=== PATIENT | male | born 1955 | race Caucasian/White ===

== ENCOUNTER 2018-04-18 14:18 | Emergency (ER) | payer BC ==
[2018-04-18] MEDS ORDERED: ACETAMINOPHEN 325 MG TABLET PO ONE (15:19)
--- NOTE | 2018-04-18 15:19 | ER Document Report ---
ED Medical Screen (RME) - General Mode of Arrival: Ambulatory Information source: Patient <DERREK CORONA - Last Filed: 04/18/18 20:03> <GERMANIA REYNA - Last Filed: 04/18/18 20:44> - General Chief Complaint: Fall Injury Stated Complaint: FALL,BODY PAIN Time Seen by Provider: 04/18/18 14:56 Notes: Patient is a 63-year-old male that presents to the emergency department for chief complaint of finger laceration, and fall from 10 feet. Patient states that he was working on building stairs, and he fell approximately 10 feet forward, he did hit his head, but did not lose consciousness, he ended up cutting his left pinky finger, and has pain in his low back from bruising it. Currently rates his pain as a 5 out of 10 mainly in the back, where he had some bruising, describes as an aching, dull sensation, nonradiating denies any numbness, tingling or weakness in the arms or legs. He believes his last tetanus was 6 years ago. ROS: Unless otherwise stated in this report the patient's positive and negative responses for review of systems for constitutional, eyes, ENT, cardiovascular, respiratory, gastrointestinal, neurological, genitourinary, musculoskeletal, and integumentary systems and related systems to the presenting problem are either as stated in the HPI or were not pertinent or were negative for the symptoms and/or complaints related to the presenting medical problem. PHYSICAL EXAMINATION: Vital signs reviewed. GENERAL: Well-appearing, well-nourished and in no acute distress. HEAD: Cephalhematoma noted to the left posterior lateral scalp, no active bleeding, no lacerations, there is an abrasion over the patient's right bridge of his nose as well. EYES: Pupils equal round extraocular movements intact, conjunctiva are normal. ENT: Nares patent, no septal hematoma NECK: Normal range of motion CV: Heart regular rate and rhythm LUNGS: No respiratory distress BACK: Mild tenderness to palpation, over the area of the left quadratus lumborum muscle, there is no paraspinal or midline tenderness to the lumbar thoracic spine. Musculoskeletal: Normal range of motion, laceration noted to the palmar aspect of the left small finger, into the subcutaneous tissues, no active bleeding at this time, cap refill less than 3 seconds NEUROLOGICAL: Normal speech, no numbness, tingling or weakness in any extremity PSYCH: Normal mood, normal affect. MDM: Patient seen and examined for rapid initial assessment. Vital signs reviewed. A comprehensive ED assessment and evaluation of the patient, analysis of test results and completion of the medical decision making process will be conducted by additional ED providers. *Note is created using voice recognition software and may contain spelling, syntax or grammatical errors. (GERMANIA REYNA) - Related Data Allergies/Adverse Reactions: No Known Allergies Allergy (Verified 04/18/18 14:54) Past Medical History - Social History Frequency of alcohol use: Social Drug Abuse: Marijuana - Past Medical History Cardiac Medical History: Reports: Hx Hypertension Pulmonary Medical History: Reports: Hx Asthma Renal/ Medical History: Denies: Hx Peritoneal Dialysis Past Surgical History: Reports: Hx Orthopedic Surgery - knee, rotator cuff <GERMANIA REYNA - Last Filed: 04/18/18 20:44> - Vital signs Vitals: Temp Pulse Resp BP Pulse Ox 97.8 F 62 18 142/64 H 96 04/18/18 14:23 04/18/18 14:23 04/18/18 14:23 04/18/18 14:23 04/18/18 14:23 - Vital Signs Vital signs: Temp Pulse Resp BP Pulse Ox 97.8 F 57 L 17 136/81 H 96 04/18/18 20:26 04/18/18 20:26 04/18/18 20:26 04/18/18 20:26 04/18/18 20:26 Procedures - Immobilization Left 5th digit Pre-Proc Neuro Vasc Exam: Normal Immobilizer type: Finger splint (Static) Performed by: PCT Post-Proc Neuro Vasc Exam: Normal, Unchanged from pre-exam Alignment checked and good: Yes - Laceration/Wound Repair Left 5th digit Time completed: 19:52 Wound length (cm): 2.7 Wound's Depth, Shape: Into muscle, Linear, Irregular Laceration pre-procedure: Sterile PPE donned, Sterile drapes applied, Shur- Clens applied Anesthetic type: 1% Lidocaine Volume Anesthetic (mLs): 4 Wound explored: No foreign body removed, Contaminated Irrigated w/ Saline (mLs): 200 Wound Debrided: Moderate Wound Repaired With: Sutures Suture Size/Type: 4:0 Number of Sutures: 5 Layer Closure?: No Post-procedure wound care: Sterile dressing applied, Splint applied Post-procedure NV exam normal: Yes Complications: No <CJDERREK T - Last Filed: 04/18/18 20:03> Doctor's Discharge <DERREK CORONA - Last Filed: 04/18/18 20:03> <REYNAGERMANIA - Last Filed: 04/18/18 20:44> - Discharge Clinical Impression: Concussion Qualifiers: Encounter type: initial encounter Loss of consciousness presence/duration: without LOC Qualified Code(s): S06.0X0A - Concussion without loss of consciousness, initial encounter Finger laceration Qualifiers: Encounter type: initial encounter Finger: little finger Damage to nail status: without damage Foreign body presence: without foreign body Laterality: left Qualified Code(s): S61.217A - Laceration without foreign body of left little finger without damage to nail, initial encounter Condition: Stable Disposition: HOME, SELF-CARE Instructions: Antibiotic Ointment Protection ([facility]), Laceration Care ([facility]), Oral Narcotic Medication ([facility]) Additional Instructions: Home and rest. Take all the antibiotics that we have prescribed. Return to ER in 8-10 days for suture removal or sooner if you have any concerns or problems. Primarily be on the safe side if it does not look like it is healing to you come back and let us look at it. As far as all your other aches and pains ago ice down everything that hurts at least 3 times a day. Ibuprofen 800 mg 3 times a day with food. Again should you have any concerns or problems return to ER for recheck. Use the splint for at least 4-5 days in order to let it heal. You may take it off to take a shower. Keep the wound clean and dry for 48 hours. After that you can resume normal activity. Prescriptions: Cephalexin Monohydrate [Keflex 500 mg Capsule] 500 mg PO Q6H 7 Days #28 capsule Hydrocodone/Acetaminophen [Decorah 5-325 mg Tablet] 1 tab PO Q4 PRN #10 tablet PRN Reason: Forms: Elevated Blood Pressure Referrals: ISELA GUZMAN MD [Primary Care Provider] - Follow up as needed
--- NOTE | 2018-04-18 15:52 | RADIOLOGY REPORT (SQ) ---
EXAM DESCRIPTION: CT HEAD WITHOUT COMPLETED DATE/TIME: 04/18/2018 3:44 pm REASON FOR STUDY: fall, head injury COMPARISON: None. TECHNIQUE: Axial images acquired through the brain without intravenous contrast. Images reviewed wi th bone, brain and subdural windows. Additional sagittal and coronal reconstructions were generated. Images stored on PACS. All CT scanners at this facility use dose modulation, iterative reconstruction, and/or weight based d osing when appropriate to reduce radiation dose to as low as reasonably achievable (ALARA). [facility]: Dose Right [facility]: CareDose [facility]: Dose Right [facility]: Teradose 4D [facility]: CampEasy RADIATION DOSE: CT Rad equipment meets quality standard of care and radiation dose reduction techniq ues were employed. CTDIvol: 53.2 mGy. DLP: 1097 mGy-cm. mGy. LIMITATIONS: None. FINDINGS: VENTRICLES: Normal size and contour. CEREBRUM: No masses. No hemorrhage. No midline shift. No evidence for acute infarction. Normal gra y/white matter differentiation. No areas of low density in the white matter. CEREBELLUM: No masses. No hemorrhage. No alteration of density. No evidence for acute infarction. EXTRAAXIAL SPACES: No fluid collections. No masses. ORBITS AND GLOBE: No intra- or extraconal masses. Normal contour of globe without masses. CALVARIUM: No fracture. PARANASAL SINUSES: No fluid or mucosal thickening. SOFT TISSUES: Left parietal scalp hematoma. OTHER: No other significant finding. IMPRESSION: NORMAL BRAIN CT WITHOUT CONTRAST. EVIDENCE OF ACUTE STROKE: NO. COMMENT: Quality ID # [id number]: Final reports with documentation of one or more dose reduction techniques (e.g., Automated exposure control, adjustment of the mA and/or kV according to patient size, use of iterative reconstruction technique) TECHNICAL DOCUMENTATION: JOB ID: [id number] [employer]- All Rights Reserved Reading location - IP/workstation name: [email or web address]
--- NOTE | 2018-04-18 15:54 | RADIOLOGY REPORT (SQ) ---
EXAM DESCRIPTION: CT CERVICAL SPINE WITHOUT COMPLETED DATE/TIME: 04/18/2018 3:44 pm REASON FOR STUDY: fall, head injury COMPARISON: None. TECHNIQUE: Axial images acquired through the cervical spine without intravenous contrast. Images re viewed with lung, soft tissue and bone windows. Reconstructed coronal and sagittal MPR images review ed. Images stored on PACS. All CT scanners at this facility use dose modulation, iterative reconstruction, and/or weight based d osing when appropriate to reduce radiation dose to as low as reasonably achievable (ALARA). [facility]: Dose Right [facility]: CareDose [facility]: Dose Right [facility]: Teradose 4D [facility]: [employer] RADIATION DOSE: CT Rad equipment meets quality standard of care and radiation dose reduction techniq ues were employed. CTDIvol: 21.0 mGy. DLP: 467 mGy-cm. mGy. LIMITATIONS: None. FINDINGS: ALIGNMENT: Anatomic. MINERALIZATION: Osteopenia. VERTEBRAL BODIES: No acute fracture. DISCS: Multilevel disc space narrowing with osteophytes. FACETS, LATERAL MASSES, POSTERIOR ELEMENTS: Facet arthropathy. No fractures. No dislocation. No ac [place] findings. HARDWARE: None in the spine. VISUALIZED RIBS: No fractures. LUNG APICES AND SOFT TISSUES: No significant or acute findings. OTHER: No other significant finding. IMPRESSION: CHRONIC DEGENERATIVE CHANGES. NO ACUTE FINDINGS. TECHNICAL DOCUMENTATION: JOB ID: [id number] Quality ID # [id number]: Final reports with documentation of one or more dose reduction techniques (e.g., Au tomated exposure control, adjustment of the mA and/or kV according to patient size, use of iterative reconstruction technique) 2010 [employer]- All Rights Reserved Reading location - IP/workstation name: [email or web address]
--- NOTE | 2018-04-18 16:09 | RADIOLOGY REPORT (SQ) ---
EXAM DESCRIPTION: FINGER LEFT COMPLETED DATE/TIME: 04/18/2018 3:50 pm REASON FOR STUDY: laceration, left small finger COMPARISON: None. NUMBER OF VIEWS: Three views. TECHNIQUE: AP, lateral, and oblique images acquired of the left fifth finger. LIMITATIONS: None. FINDINGS: MINERALIZATION: Normal. BONES: No acute fracture or dislocation. No worrisome bone lesions. SOFT TISSUES: Clustered opacities along the anterior margin of the distal interphalangeal joint. Adj acent skin laceration. OTHER: No other significant finding. IMPRESSION: Soft tissue injury. Granular foreign bodies. COMMENT: SITE OF TRAUMA/COMPLAINT MARKED/STAMP COMPLETED: YES. TECHNICAL DOCUMENTATION: JOB ID: [id number] [email or web address]- All Rights Reserved Reading location - IP/workstation name: [email or web address]
[2018-04-18] MEDS ORDERED: LIDOCAINE 1% INJ-PF (10 MG/ML) 30 ML SDV INJ ONE (18:00)
[2018-04-18 20:32] VITALS: BP 136/81
--- NOTE | 2018-04-20 11:07 | ER Document Report ---
ED Fall - General Chief Complaint: Fall Injury Stated Complaint: FALL,BODY PAIN Time Seen by Provider: 04/18/18 14:56 Mode of Arrival: Ambulatory Information source: Patient Notes: Patient is a 63-year-old male comes emergency room complaining of having a fall off deck. He fell backwards approximately 3 feet off of a deck hit his head on a log on the back side. And somehow managed to lacerate his left little finger. He denies any loss of consciousness. He reports some neck tenderness as well. Denies any back pain. And presenting complaint basically is before the laceration to his left little finger. TRAVEL OUTSIDE OF THE [place] IN LAST 30 DAYS: No - HPI Occurred: Just prior to arrival Where: Work Context: Lost balance, Fell from standing, Fell from height Associated symptoms: denies: Lost consciousness, Dazed/confused Location of injury/pain: Head, Neck Quality of pain: Sharp, Throbbing Severity: Moderate Pain Level: 3 - Related data Allergies/Adverse Reactions: No Known Allergies Allergy (Verified 04/18/18 14:54) Past Medical History - Social History Smoking Status: Never Smoker Cigarette use (# per day): No Chew tobacco use (# tins/day): No Smoking Education Provided: No Frequency of alcohol use: None Drug Abuse: None, Marijuana Family History: Reviewed & Not Pertinent Patient has suicidal ideation: No Patient has homicidal ideation: No - Past Medical History Cardiac Medical History: Reports: Hx Hypertension Pulmonary Medical History: Reports: Hx Asthma Renal/ Medical History: Denies: Hx Peritoneal Dialysis Past Surgical History: Reports: Hx Orthopedic Surgery - knee, rotator cuff Review of Systems - Review of Systems Constitutional: No symptoms reported EENT: No symptoms reported Cardiovascular: No symptoms reported Respiratory: No symptoms reported Gastrointestinal: No symptoms reported Genitourinary: No symptoms reported Male Genitourinary: No symptoms reported Musculoskeletal: See HPI, Neck pain Skin: No symptoms reported Hematologic/Lymphatic: No symptoms reported Neurological/Psychological: Headaches -: Yes All other systems reviewed and negative Physical Exam - Vital signs Vitals: Temp Pulse Resp BP Pulse Ox 97.8 F 62 18 142/64 H 96 04/18/18 14:23 04/18/18 14:23 04/18/18 14:23 04/18/18 14:23 04/18/18 14:23 Interpretation: Hypertensive - Notes Notes: PHYSICAL EXAMINATION: GENERAL: Well-appearing, well-nourished and in no acute distress. C collar in place. On backboard. GCS 15 HEAD, normocephalic. Examination of the head shows there to be a small hematoma on the left lateral side almost posterior on the occipital area. No sign of abrasion no sign of ecchymosis no feeling of crepitus. EYES: Pupils equal round and reactive to light, extraocular movements intact, sclera anicteric, conjunctiva are normal. ENT: Nares patent, oropharynx clear without exudates. Moist mucous membranes. No hemanotympanum . No blood in nares. No dental fracture NECK: Normal range of motion, Trachea midline. Further examination shows there to be some paravertebral tenderness in the lower cervical spine area secondary to spasms. Curvature appears to be normal. There seems to be some spasm going across the upper trapezius bilaterally. Patient has full range of motion without any noted deficits. LUNGS: Breath sounds clear to auscultation bilaterally and equal. No wheezes rales or rhonchi. HEART: Regular rate and rhythm without murmurs. Pulses intact all throughout. ABDOMEN: Soft, nontender, nondistended abdomen. No guarding, no rebound. No masses appreciated. Musculoskeletal: Normal range of motion, no pitting or edema. No cyanosis. Hip non tender, stable. Per the physical examination shows left upper extremity to have and more focused in on the left little finger there is a laceration that starts about mid finger medially at the DIP and runs across the pad area to about the middle of the lateral side of the little finger. Patient has good flexion and extension of the distal tip of the little finger when held in traction patient can flex and extend the tip with no difficulty. He can push against resistance and also push backwards against resistance with normal strength maneuvers. There is no sign of tendon damage. I also used a tourniquet to decrease blood flow to the area so I could examine under a bloodless field and also I found no tendon involvement and no exposed tendons. NEUROLOGICAL:. Normal speech, normal gait. Normal sensory, motor, and reflex exams. PSYCH: Normal mood, normal affect. SKIN: Warm, No active bleeding U/S fast exam notes no obvious free fluid but this is a nondiagnostic evaluation Course - Re-evaluation Re-evalutation: 04/20/18 11:03 Procedures - Immobilization Left 5th digit Pre-Proc Neuro Vasc Exam: Normal Immobilizer type: Finger splint (Static) Performed by: PCT Post-Proc Neuro Vasc Exam: Normal, Unchanged from pre-exam Alignment checked and good: Yes - Laceration/Wound Repair Left 5th digit Time completed: 19:52 Wound length (cm): 2.7 Wound's Depth, Shape: Into muscle, Linear, Irregular Laceration pre-procedure: Sterile PPE donned, Sterile drapes applied, Shur- Clens applied Anesthetic type: 1% Lidocaine Volume Anesthetic (mLs): 4 Wound explored: No foreign body removed, Contaminated Irrigated w/ Saline (mLs): 200 Wound Debrided: Moderate Wound Repaired With: Sutures Suture Size/Type: 4:0 Number of Sutures: 5 Layer Closure?: No Post-procedure wound care: Sterile dressing applied, Splint applied Post-procedure NV exam normal: Yes Complications: No <DERREK CORONA T - Last Filed: 04/18/18 20:03> Doctor's Discharge <DERREK CORONA - Last Filed: 04/18/18 20:03> <GERMANIA REYNA - Last Filed: 04/18/18 20:44> - Discharge Clinical Impression: Concussion Qualifiers: Encounter type: initial encounter Loss of consciousness presence/duration: without LOC Qualified Code(s): S06.0X0A - Concussion without loss of consciousness, initial encounter Finger laceration Qualifiers: Encounter type: initial encounter Finger: little finger Damage to nail status: without damage Foreign body presence: without foreign body Laterality: left Qualified Code(s): S61.217A - Laceration without foreign body of left little finger without damage to nail, initial encounter Condition: Stable Disposition: HOME, SELF-CARE Instructions: Antibiotic Ointment Protection ([facility]), Laceration Care ([facility]), Oral Narcotic Medication ([facility]) Additional Instructions: Home and rest. Take all the antibiotics that we have prescribed. Return to ER in 8-10 days for suture removal or sooner if you have any concerns or problems. Primarily be on the safe side if it does not look like it is healing to you come back and let us look at it. As far as all your other aches and pains ago ice down everything that hurts at least 3 times a day. Ibuprofen 800 mg 3 times a day with food. Again should you have any concerns or problems return to ER for recheck. Use the splint for at least 4-5 days in order to let it heal. You may take it off to take a shower. Keep the wound clean and dry for 48 hours. After that you can resume normal activity. Prescriptions: Cephalexin Monohydrate [Keflex 500 mg Capsule] 500 mg PO Q6H 7 Days #28 capsule Hydrocodone/Acetaminophen [Jolley 5-325 mg Tablet] 1 tab PO Q4 PRN #10 tablet PRN Reason: Forms: Elevated Blood Pressure Referrals: ISELA GUZMAN MD [Primary Care Provider] - Follow up as needed 04/20/18 11:13 I originally made the mistake of adding my examination onto the physicians medical screening exam I therefore cut and pasted this over and added in to the rest of the H&P what was needed. - Vital Signs Vital signs: Temp Pulse Resp BP Pulse Ox 97.8 F 57 L 17 136/81 H 96 04/18/18 20:26 04/18/18 20:26 04/18/18 20:26 04/18/18 20:26 04/18/18 20:26 Discharge - Discharge Clinical Impression: Concussion Qualifiers: Encounter type: initial encounter Loss of consciousness presence/duration: without LOC Qualified Code(s): S06.0X0A - Concussion without loss of consciousness, initial encounter Finger laceration Qualifiers: Encounter type: initial encounter Finger: little finger Damage to nail status: without damage Foreign body presence: without foreign body Laterality: left Qualified Code(s): S61.217A - Laceration without foreign body of left little finger without damage to nail, initial encounter Condition: Stable Disposition: HOME, SELF-CARE Instructions: Antibiotic Ointment Protection ([facility]), Laceration Care ([facility]), Oral Narcotic Medication ([facility]) Additional Instructions: Home and rest. Take all the antibiotics that we have prescribed. Return to ER in 8-10 days for suture removal or sooner if you have any concerns or problems. Primarily be on the safe side if it does not look like it is healing to you come back and let us look at it. As far as all your other aches and pains ago ice down everything that hurts at least 3 times a day. Ibuprofen 800 mg 3 times a day with food. Again should you have any concerns or problems return to ER for recheck. Use the splint for at least 4-5 days in order to let it heal. You may take it off to take a shower. Keep the wound clean and dry for 48 hours. After that you can resume normal activity. Prescriptions: Cephalexin Monohydrate [Keflex 500 mg Capsule] 500 mg PO Q6H 7 Days #28 capsule Hydrocodone/Acetaminophen [Jolley 5-325 mg Tablet] 1 tab PO Q4 PRN #10 tablet PRN Reason: Forms: Elevated Blood Pressure Referrals: ISELA GUZMAN MD [Primary Care Provider] - Follow up as needed
== END 2018-04-18 20:32 | disposition home or self-care (01) ==
LOC: ER 14:18
DX: S06.0X0A Concussion without loss of consciousness, initial encounter (principal); S61.217A Laceration without foreign body of left little finger without damage to nail, initial encounter; M79.10 Myalgia, unspecified site; W17.89XA Other fall from one level to another, initial encounter; Y99.0 Civilian activity done for income or pay; I10 Essential (primary) hypertension
CPT/HCPCS: 99284; 73140; 70450; 72125; 12002; J3490

== ENCOUNTER 2018-04-27 14:33 | Emergency (ER) | payer BC ==
[2018-04-27 15:20] VITALS: BP 124/79
--- NOTE | 2018-04-27 15:29 | ER Document Report ---
HPI - HPI Patient complains to provider of: Suture removal Onset/Duration: Better Pain Level: Denies Context: Patient is here for suture removal to laceration to the left fifth finger that occurred 10 days ago. Patient denies any complications or pain from the injury. Associated Symptoms: Other - Sutured left fifth finger Exacerbated by: Denies Relieved by: Denies Similar symptoms previously: No Recently seen / treated by doctor: Yes - ROS ROS below otherwise negative: Yes Systems Reviewed and Negative: Yes All other systems reviewed and negative - CONSTITUTIONAL Constitutional: DENIES: Fever - NEURO Neurology: DENIES: Weakness - DERM Skin Color: Normal Skin Problems: Laceration - Sutured laceration to left fifth finger Past Medical History - General Information source: Patient - Social History Smoking Status: Never Smoker Chew tobacco use (# tins/day): No Frequency of alcohol use: Occasional Drug Abuse: Marijuana Family History: Reviewed & Not Pertinent Patient has suicidal ideation: No Patient has homicidal ideation: No - Past Medical History Cardiac Medical History: Reports: Hx Hypertension Pulmonary Medical History: Reports: Hx Asthma Renal/ Medical History: Denies: Hx Peritoneal Dialysis Past Surgical History: Reports: Hx Orthopedic Surgery - knee, rotator cuff Vertical Provider Document - CONSTITUTIONAL Agree With Documented VS: Yes Exam Limitations: No Limitations General Appearance: WD/WN, No Apparent Distress - INFECTION CONTROL TRAVEL OUTSIDE OF THE [place] IN LAST 30 DAYS: No - HEENT HEENT: Atraumatic, Normocephalic - NECK Neck: Normal Inspection - RESPIRATORY Respiratory: No Respiratory Distress - CARDIOVASCULAR Pulses: Normal: Radial - MUSCULOSKELETAL/EXTREMETIES Musculoskeletal/Extremeties: MAEW, FROM - NEURO Level of Consciousness: Awake, Alert, Appropriate Motor/Sensory: No Motor Deficit - DERM Integumentary: Warm, Dry, Laceration - Sutured laceration to palmar surface of left fifth finger. 5 intact sutures. Course - Vital Signs Vital signs: Temp Pulse Resp BP Pulse Ox 97.9 F 55 L 16 124/79 97 04/27/18 15:16 04/27/18 15:16 04/27/18 15:16 04/27/18 15:16 04/27/18 15:16 Discharge - Discharge Clinical Impression: Visit for suture removal Condition: Stable Disposition: HOME, SELF-CARE Instructions: Suture Removal Additional Instructions: Return immediately for any new or worsening symptoms Followup with your primary care provider, call tomorrow to make a followup appointment Follow-up with orthopedics for any persistent problems. Referrals: ISELA GUZMAN MD [Primary Care Provider] - Follow up as needed TANYA LOPEZ DO [ACTIVE STAFF] - Follow up as needed
== END 2018-04-27 15:38 | disposition home or self-care (01) ==
LOC: ER 14:33
DX: S61.217D Laceration without foreign body of left little finger without damage to nail, subsequent encounter (principal); X58.XXXD Exposure to other specified factors, subsequent encounter; F12.10 Cannabis abuse, uncomplicated; I10 Essential (primary) hypertension; J45.909 Unspecified asthma, uncomplicated

== ENCOUNTER 2020-05-18 07:38 | Emergency (ER) | payer BC ==
[2020-05-18 07:47] VITALS: BP 126/70
--- NOTE | 2020-05-18 09:58 | RADIOLOGY REPORT (SQ) ---
EXAM DESCRIPTION: TIBIA FIBULA LEFT IMAGES COMPLETED DATE/TIME: 05/18/2020 9:47 am REASON FOR STUDY: fall injury COMPARISON: None. EXAM PARAMETERS: NUMBER OF VIEWS: Four views. TECHNIQUE: AP and lateral radiographic images acquired of the left tibia-fibula LIMITATIONS: None. FINDINGS: MINERALIZATION: Normal. BONES: No acute fracture or dislocation. No worrisome bone lesions. JOINTS: No effusion. SOFT TISSUES: No significant soft tissue swelling. No radiopaque foreign body. OTHER: No other significant finding. IMPRESSION: NO FRACTURE. TECHNICAL DOCUMENTATION: JOB ID: [id number] [employer]- All Rights Reserved Reading location - IP/workstation name: [email or web address]
--- NOTE | 2020-05-18 10:01 | RADIOLOGY REPORT (SQ) ---
EXAM DESCRIPTION: HAND BILATERAL 3 VIEWS IMAGES COMPLETED DATE/TIME: 05/18/2020 9:47 am REASON FOR STUDY: fall injury COMPARISON: None. EXAM PARAMETERS: NUMBER OF VIEWS: Six views. TECHNIQUE: AP, lateral and oblique radiographic images acquired of the right and left hand. LIMITATIONS: None. FINDINGS: MINERALIZATION: Normal. BONES: No acute fracture or dislocation. No worrisome bone lesions. JOINTS: No effusion. SOFT TISSUES: No significant soft tissue swelling. No radiopaque foreign body. OTHER: No other significant finding. IMPRESSION: NO FRACTURE. TECHNICAL DOCUMENTATION: JOB ID: [id number] [place]-72 2010 [employer]- All Rights Reserved Reading location - IP/workstation name: [email or web address]
--- NOTE | 2020-05-18 10:41 | ER Document Report ---
Entered by RADHA PATEL SCRIBE 05/18/20 0908 Acting as scribe for:MAXIMILIAN NARAYANAN MD ED General - General Chief Complaint: Fall Injury Stated Complaint: FALL/HAND INJURY Time Seen by Provider: 05/18/20 08:56 Primary Care Provider: ISELA GUZMAN MD [Primary Care Provider] - Follow up as needed Information source: Patient Notes: This 65 year old male patient presents to the emergency department today with complaints of right 5th finger and left 1st finger pain. Patient states he slipped down the bottom half of his carpeted stairs from wearing socks and was gripping the handrail. Patient states he slid down on his bottom and denies pain. Denies any loss of consciousness or neck/back/rib pain. Patient reports some left calf tenderness but is not concerned about this. TRAVEL OUTSIDE OF THE [place] IN LAST 30 DAYS: No - Related Data Allergies/Adverse Reactions: No Known Allergies Allergy (Verified 04/27/18 14:33) Past Medical History - General Information source: Patient - Social History Smoking Status: Former Smoker Cigarette use (# per day): No Family History: Reviewed & Not Pertinent Patient has homicidal ideation: No - Past Medical History Cardiac Medical History: Reports: Hx Hypertension Pulmonary Medical History: Reports: Hx Asthma Renal/ Medical History: Denies: Hx Peritoneal Dialysis Past Surgical History: Reports: Hx Orthopedic Surgery - knee, rotator cuff Review of Systems - Review of Systems Constitutional: No symptoms reported EENT: No symptoms reported Cardiovascular: No symptoms reported Respiratory: No symptoms reported Gastrointestinal: No symptoms reported Genitourinary: No symptoms reported Male Genitourinary: No symptoms reported Musculoskeletal: See HPI, Muscle pain - L calf, Other - R 5th finger, L 1st finger pain. denies: Back pain, Neck pain Skin: No symptoms reported Hematologic/Lymphatic: No symptoms reported Neurological/Psychological: See HPI. denies: Lost consciousness -: Yes All other systems reviewed and negative Physical Exam - Vital signs Vitals: Temp Pulse Resp BP Pulse Ox 97.7 F 59 L 16 126/70 H 97 05/18/20 07:47 05/18/20 07:47 05/18/20 07:47 05/18/20 07:47 05/18/20 07:47 - General General appearance: Appears well, Alert - HEENT Head: Normocephalic, Atraumatic Eyes: Normal Pupils: PERRL Neck: Normal, Supple - Respiratory Respiratory status: No respiratory distress Chest status: Nontender Breath sounds: Normal Chest palpation: Normal - Cardiovascular Rhythm: Regular Heart sounds: Normal auscultation Murmur: No - Abdominal Inspection: Normal Distension: No distension Bowel sounds: Normal Tenderness: Nontender - Back Back: Normal, Nontender - Extremities General lower extremity: Normal inspection, Nontender, Normal color, Normal ROM, Normal strength. No: Edema Calf: Normal, Nontender. No: Ecchymosis Ankle: Normal, Nontender, Other - normal ROM Notes: Tenderness with palpation to the right hand 5th metacarpal region and left hand 1st metacarpal region. No deformity. Normal ROM, able to flex and extend all fingers. - Neurological Neuro grossly intact: Yes Cognition: Normal Orientation: AAOx4 [place] Coma Scale Eye Opening: Spontaneous [place] Coma Scale Verbal: Oriented [place] Coma Scale Motor: Obeys Commands [place] Coma Scale Total: 15 Speech: Normal Motor strength normal: LUE, RUE, LLE, RLE Additional motor exam normals: Dorsiflexion, Plantar flexion Sensory: Normal - Psychological Associated symptoms: Normal affect, Normal mood - Skin Skin Temperature: Warm Skin Moisture: Dry Skin Color: Normal Course - Re-evaluation Re-evalutation: 05/18/20 10:37 Patient resting comfortably not showing any signs of distress at this time. - Vital Signs Vital signs: Temp Pulse Resp BP Pulse Ox 97.7 F 59 L 16 126/70 H 97 05/18/20 07:47 05/18/20 07:47 05/18/20 07:47 05/18/20 07:47 05/18/20 07:47 05/18/20 10:37 Vital signs stable. - Diagnostic Test Radiology reviewed: Image reviewed, Reports reviewed Radiology results interpreted by me: 05/18/20 10:37 Hand X-Ray 05/18/20 00:00 IMPRESSION: NO FRACTURE. Tibia/Fibula X-Ray 05/18/20 00:00 IMPRESSION: NO FRACTURE. No fracture and tibiofibular on the left. Hand x-rays bilateral hands x-ray with no evidence of fractures. Discharge - Discharge Clinical Impression: Hand sprain, Bilateral hand sprain, Muscle strain of left lower leg Condition: Stable Disposition: HOME, SELF-CARE Additional Instructions: Muscle Strain You have strained a muscle -- torn the fibers within the muscle. This often occurs with strenuous exertion, or during an injury that suddenly stretches the muscle. The seriousness of a strain varies. Some strains heal within days, others cause problems for months. X-rays cannot show a muscle strain. X-rays are taken only if symptoms scott ggest that a fracture could be present. The usual treatment of a muscle strain is rest and ice packs. Sometimes, a sling, splint, or crutches may be necessary to rest the muscle. The muscle can be used again once pain subsides. Severe strains require a special exercise and stretching program to prevent permanent stiffness and disability. Your doctor will advise you if this will be necessary. Call the doctor immediately if pain or swelling becomes severe, or if numbness or discoloration develop.Sprained Finger You have a finger sprain. A sprain is an over-stretching or tearing of the ligaments which guard the joints. The injury may require a few weeks of protection while it heals. The usual treatment for a finger sprain is a splint, ice packs, and elevation. As pain and swelling decrease, cautious use of the finger is allowed. Often the injured finger is taped to an uninjured finger to provide a "moving splint" during the later healing. Complete recovery takes about three or four weeks. Your physician has assessed the seriousness of the ligament injury in your finger, and has outlined the initial treatment plan. Understand that this treatment may change, depending on how your finger progresses. If further exams were recommended, it is important that you follow up as instructed. Call the doctor at any time if there is severe pain, increasing swelling, or numbness in the finger. Sprained Thumb You have a sprain of the thumb. A sprain is an over-stretching or tearing of the ligaments which guard the joint. The injury may require a few weeks of protection while it heals. The usual treatment is ice packs, elevation, and rest of the thumb. A splint is usually placed. Because the thumb is more vulnerable to re-injury than the fingers, it often must be protected by a heavy splint for a surprisingly long time. Healing can take three to six weeks. Your physician has assessed the seriousness of the ligament injury in your thumb and has outlined the initial treatment plan. Understand that this treatment may change, depending on how your thumb progresses. If further exams were recommended, it's important that you follow up as instructed. Call the doctor any time if swelling or pain becomes severe, or if numbness develops in the thumb. Referrals: ISELA GUZMAN MD [Primary Care Provider] - Follow up as needed I personally performed the services described in the documentation, reviewed and edited the documentation which was dictated to the scribe in my presence, and it accurately records my words and actions.
== END 2020-05-18 11:17 | disposition home or self-care (01) ==
LOC: ER 07:38
DX: S63.92XA Sprain of unspecified part of left wrist and hand, initial encounter (principal); S63.91XA Sprain of unspecified part of right wrist and hand, initial encounter; S86.912A Strain of unspecified muscle(s) and tendon(s) at lower leg level, left leg, initial encounter; W10.9XXA Fall (on) (from) unspecified stairs and steps, initial encounter; I10 Essential (primary) hypertension
CPT/HCPCS: 99284